=== PATIENT | male | born 1955 | race Hispanic/Latino ===

== ENCOUNTER → 2019-04-13 | Outpatient (CLI) | payer OTHER ==
[~2019-04-13] MED LIST: IOPAMIDOL 370 MG/ML 200 ML INFUS..BTL INJ ONE; LOSARTAN-HCTZ1 EACH PO; METFORMIN HCL1000 MG PO; ONGLYZA5 MG PO; PRAVASTATIN SOD40 MG PO; SODIUM CHLORIDE 0.9% 250ML 250 ML ONE
[2019-04-13 16:11] LABS: BLOOD UREA NITROGEN 16 mg/dL (7-26); BUN/CREATININE RATIO 20 (6-25); CREATININE, SERUM 0.81 mg/dL (0.72-1.25); EST GLOMERULAR FILTRATION RATE > 60 ML/MIN (60-)
--- NOTE | 2019-04-13 17:38 | Diagnostic Imaging Report ---
EXAM: CT ABDOMEN AND PELVIS with and without IV CONTRAST DATE: 04/13/2019 Time stamp on Exam: 4:55 PM INDICATION: Gross hematuria COMPARISON: None TECHNIQUE: The abdomen and pelvis were scanned using a multidetector helical scanner. Coronal and sagittal reformations were obtained. Hematuria protocol was utilized. Technique manipulation was accomplished to maintain the lowest dose possible to the patient. IV Contrast: 150 cc of Isovue-370 Oral Contrast: Water Radiation Dose: Total DLP 1420.01 mGy*cm Estimated effective dose: DLP x 0.015 x size factor FINDINGS: LOWER THORAX: No consolidations LIVER: No masses BILIARY: The gallbladder is unremarkable. No ductal dilatation. SPLEEN: No masses PANCREAS: No masses ADRENALS: No nodules KIDNEYS: Symmetric perfusion. No enhancing masses. No hydronephrosis. No calcified renal or ureteral stones. There are no filling defects within the collecting systems or ureters. Small hypodensity in the lower pole of the left kidney is too small to characterize but likely a cyst. GI TRACT: No distention, wall thickening or evidence of obstruction. VESSELS: Vascular calcification. PERITONEUM/RETROPERITONEUM: No free air or fluid LYMPH NODES: No lymphadenopathy REPRODUCTIVE ORGANS: Prostate enlargement measuring 6.3 cm. BLADDER: Bladder wall thickening. SOFT TISSUES: Unremarkable BONES: No suspicious bone lesions. Mild degenerative changes of the spine. IMPRESSION: 1. No calcified renal, ureteral stones or evidence of a mass. 2. Significant prostate enlargement with indentation bladder base. 3. There is mild bladder wall thickening. Signed by: Dr. Alessio Jones DO on 04/13/2019 5:35 PM
== END ==
LOC: CT 15:26
PROVIDERS: ATTEND Urology
DX: R31.0 Gross hematuria (principal)
CPT/HCPCS: 36415; 74178; 82565; 84520; J7050; Q9967